=== PATIENT | female | born 1980 | race Caucasian/White ===

== ENCOUNTER 2017-11-26 15:06 | Emergency (ER) | payer OTHER ==
[2017-11-26 16:30] LABS: CHLORIDE,CL 105 mmol/L (98-107); SODIUM,NA 139 mmol/L (136-145)
--- NOTE | 2017-11-26 16:49 | EDM.PDOC ---
ED HPI GENERAL MEDICAL PROBLEM - General Chief Complaint: General Stated Complaint: FAST HEARTRATE Time Seen by Provider: 11/26/17 15:10 Source of Information: Reports: Patient History Limitations: Reports: No Limitations - History of Present Illness INITIAL COMMENTS - FREE TEXT/NARRATIVE: Pt. states that she has been experiencing palpitations intermittently since having her child. According to her chart, she has had a normal workup since that time. She is convinced that the tachycardia is due to her escitalopram dose being too low. She states that she is not experiencing any shortness of breath. No fever or chills. No recent illnesses. She previously was taking zoloft but stopped taking it, as she felt that it was causing "skippy beats" and continued issues with tachycardia. She was subsequently started on lexapro. She has had normal EKGs and echocardiogram. She has not done a trial of beta blockers yet. She states that she has been under increased stress recently. She states that she continues to feel anxious, and thinks that this is the cause of her tachycardia. Onset: Today Onset Date: 11/26/17 Onset Time: 15:10 Location: Reports: Generalized Right Lower Back Pain Score (Numeric/FACES): 8 - Related Data Allergies Allergy/AdvReac Type Severity Reaction Status Date / Time amoxicillin Allergy Itching Verified 11/26/17 15:33 wasps Allergy Anaphylactic Uncoded 11/26/17 15:33 Shock Home Meds: Home Meds Escitalopram Oxalate [Lexapro] 5 mg DAILY 11/26/17 [History] LORazepam 0.5 mg ASDIRECTED PRN 11/26/17 [History] Past Medical History Musculoskeletal History: Reports: Back Pain, Chronic Psychiatric History: Reports: Anxiety, Depression - Past Surgical History Female Surgical History: Reports: Section Social & Family History - Tobacco Use Smoking Status *Q: Current Every Day Smoker Years of Tobacco use: 19 Packs/Tins Daily: 0.5 Used Tobacco, but Quit: No - Recreational Drug Use Recreational Drug Use: No ED ROS GENERAL - Review of Systems Review Of Systems: See Below Constitutional: Reports: No Symptoms HEENT: Reports: No Symptoms Respiratory: Reports: No Symptoms Cardiovascular: Reports: Palpitations Endocrine: Reports: No Symptoms GI/Abdominal: Reports: No Symptoms : Reports: No Symptoms Musculoskeletal: Reports: No Symptoms Skin: Reports: No Symptoms Neurological: Reports: No Symptoms Psychiatric: Reports: No Symptoms Hematologic/Lymphatic: Reports: No Symptoms Immunologic: Reports: No Symptoms ED EXAM, GENERAL - Physical Exam Exam: See Below Exam Limited By: No Limitations General Appearance: Alert, WD/WN, No Apparent Distress Eye Exam: Bilateral Eye: EOMI, Normal Fundi, Normal Inspection, PERRL Ears: Normal External Exam, Normal Canal, Hearing Grossly Normal, Normal TMs Nose: Normal Inspection, Normal Mucosa, No Blood Throat/Mouth: Normal Inspection, Normal Lips, Normal Teeth, Normal Gums, Normal Oropharynx, Normal Voice, No Airway Compromise Head: Atraumatic, Normocephalic Neck: Normal Inspection, Supple, Non-Tender, Full Range of Motion Respiratory/Chest: No Respiratory Distress, Lungs Clear, Normal Breath Sounds, No Accessory Muscle Use, Chest Non-Tender Cardiovascular: Normal Peripheral Pulses, No Edema, No Gallop, No JVD, No Murmur , No Rub, Tachycardia Peripheral Pulses: 4+: Radial (L), Radial (R) GI/Abdominal: Normal Bowel Sounds, Soft, Non-Tender, No Organomegaly, No Distention, No Abnormal Bruit, No Mass (Female) Exam: Deferred Rectal (Female) Exam: Deferred Back Exam: Normal Inspection, Full Range of Motion, NT Extremities: Normal Inspection, Normal Range of Motion, Non-Tender, Normal Capillary Refill, No Pedal Edema Neurological: Alert, Oriented, CN II-XII Intact, Normal Cognition, Normal Gait, Normal Reflexes, No Motor/Sensory Deficits Psychiatric: Normal Affect, Normal Mood Skin Exam: Warm, Dry, Intact, Normal Color, No Rash Lymphatic: No Adenopathy EKG INTERPRETATION Rhythm: Other (sinus tach) [place]: Normal P-Wave: Present QRS: Normal ST-T: Normal QT: Normal Comparison: No Change Course - Vital Signs Last Recorded V/S: Last Vital Signs Temp 36.8 C 11/26/17 15:10 Pulse 106 H 11/26/17 15:10 Resp 20 11/26/17 15:10 BP 128/74 11/26/17 15:10 Pulse Ox 96 11/26/17 15:10 - Orders/Labs/Meds Orders: Active Orders 24 hr Category Date Time Status EKG Documentation Completion [RC] STAT Care 11/26/17 15:38 Active Chest 2V [CR] Stat Exams 11/26/17 15:38 Taken Labs: Laboratory Tests 11/26/17 11/26/17 11/26/17 Range/Units 15:47 15:47 15:47 WBC 9.1 (4.0-10.0) x10^3/uL RBC 4.71 (4.00-5.50) x10^6/uL Hgb 13.5 (12.0-16.0) g/dL Hct 40.5 (33.0-47.0) % MCV 86.0 (78.0-93.0) fL MCH 28.7 (26.0-32.0) pg MCHC 33.3 (32.0-36.0) g/dL RDW Coeff of Jamee 13.3 (10.0-15.0) % Plt Count 275 (130-400) x10^3/uL Neut % (Auto) 62.9 (50.0-80.0) % Lymph % (Auto) 29.1 (25.0-50.0) % [place] % (Auto) 6.5 (2.0-11.0) % Eos % (Auto) 1.3 (0.0-4.0) % Baso % (Auto) 0.2 (0.2-1.2) % PT 9.8 (9.6-11.4) SEC INR 0.9 L (2.0-3.5) Sodium 139 (136-145) mmol/L Potassium 3.8 (3.5-5.1) mmol/L Chloride 105 (98-107) mmol/L Carbon Dioxide 27 (21-32) mmol/L Anion Gap 10.8 (10-20) mmol/L BUN 15 (7-18) mg/dL Creatinine 0.8 (0.55-1.02) mg/dL Est Cr Clr Drug Dosing 91.01 mL/min Estimated GFR (MDRD) > 60 Glucose 113 H (74-106) mg/dL Calcium 8.7 (8.5-10.1) mg/dL Corrected Calcium 9.10 (8.5-10.1) mg/dL Total Bilirubin 0.3 (0.2-1.0) mg/dL AST 12 L (15-37) U/L ALT 19 (14-59) U/L Alkaline Phosphatase 81 (46-116) U/L Troponin I < 0.017 (<=0.056) ng/mL Total Protein 7.0 (6.4-8.2) g/dL Albumin 3.5 (3.4-5.0) g/dL Globulin 3.5 Albumin/Globulin Ratio 1.00 TSH, Ultra Sensitive 2.551 (0.358-3.74) uIU/mL - Radiology Interpretation Free Text/Narrative:: chest x-ray is negative for acute pathology Departure - Departure Time of Disposition: 17:00 Disposition: Home, Self-Care 01 Condition: Good Clinical Impression: Intermittent palpitations - Discharge Information Instructions: Sinus Tachycardia Referrals: Radha Felder MD [Primary Care Provider] - Forms: ED Department Discharge Additional Instructions: Follow-up with Radha in 7-10 days. Return to ER if chest pain, shortness of breath, or weakness. - My Orders Last 24 Hours: My Active Orders 11/26/17 15:38 EKG Documentation Completion [RC] STAT Chest 2V [CR] Stat - Assessment/Plan Last 24 Hours: My Active Orders 11/26/17 15:38 EKG Documentation Completion [RC] STAT Chest 2V [CR] Stat Assessment:: Palpitations Plan: Discussed findings with the pt. I advised starting her on a trial of beta blockers to see if this helped the symptoms. She declined, stating she thinks her palpitations are due to her anxiety and dose of medication that she is on. I advised her that she needs to follow-up with her PCP regarding adjustment to her medication. All questions were answered.
== END 2017-11-26 17:00 | disposition home or self-care (01) ==
LOC: VM.ED 15:06
DX: R00.2 Palpitations (principal); F17.210 Nicotine dependence, cigarettes, uncomplicated; F41.9 Anxiety disorder, unspecified; F32.9 Major depressive disorder, single episode, unspecified; Z79.899 Other long term (current) drug therapy; Z88.0 Allergy status to penicillin; Z91.09 Other allergy status, other than to drugs and biological substances
CPT/HCPCS: 36415; 71046; 80053; 84443; 84484; 85025; 85610; 93005; 99285

== ENCOUNTER → 2018-11-07 | Emergency (ER) | payer OTHER | LOC: VM.ED 13:54 | DX: Z53.21 Procedure and treatment not carried out due to patient leaving prior to being seen by health care provider (principal) ==